=== PATIENT | female | born 1985 | race Caucasian/White ===

== ENCOUNTER 2020-03-10 17:27 | Emergency (ER) | payer OTHER, SELFPAY ==
--- NOTE | ~2020-03-10 | US_ITS ---
EXAMINATION: US OB <=14 wk fetus w TV EXAM DATE: 03/10/2020 18:24 INDICATION: Right pelvic pain, . Right lower quadrant pain. First trimester. TECHNIQUE: Pelvic obstetrical transabdominal and transvaginal sonogram was performed by a technologjorge hodges. There are multiple grayscale and Doppler images available for interpretation. There are no angelo ier studies of this gestation for comparison. FINDINGS: Uterus measures 8.6 x 4.9 x 7.2 cm. There is probable intrauterine gestation sac identified , mean sac diameter measuring 5 mm corresponding chest gestational age 5 weeks 0 days. No pole or yolk sac confirmed at this time. No subchorionic hemorrhage. Right ovary is unremarkable. There is hypoechoic lesion in the left ovary measuring up to 1.2 cm, smaller central hypoechoic region, proba filemon the corpus luteal cyst. Doppler flow was confirmed within both ovaries. Small free pelvic fluid. IMPRESSION: Early intrauterine gestation sac, age by ultrasound 5 weeks 0 days. Cannot identify pole at this time. Reviewed, dictated and finalized at location A.
[2020-03-10 17:30] VITALS: BP 141/92; PULSE 97; RESP 19; TEMP 37.7; O2SAT 100
--- NOTE | 2020-03-10 17:50 | ED.ABDPAIN ---
HPI - Abdominal Pain General Chief Complaint: Abdominal Pain <SHIRA Belcher Last Filed: 03/10/20 19:39> Stated Complaint: with RLQ pain <SHIRA Belcher Last Filed: 03/10/20 19:39> Time Seen by Provider: 03/10/20 17:41 <SHIRA Belcher Last Filed: 03/10/20 19:39> Source: patient <SHIRA Belcher Last Filed: 03/10/20 19:39> Mode of arrival: ambulatory <SHIRA Belcher Last Filed: 03/10/20 19:39> Limitations: no limitations <SHIRA Belcher Last Filed: 03/10/20 19:39> History of Present Illness HPI narrative: This is a 34 year old about 5 weeks by LMP that presents to the ER for right sided pelvic pain x 2 hours. Reports sudden onset sharp pain, which has improved since onset. Denies fever, vomiting, back pain, pelvic cramping, vaginal bleeding, or dysuria. <SHIRA Belcher Last Filed: 03/10/20 19:39> Related Data Home Medications: Home Medications Medication Instructions Recorded Confirmed Adderall 03/10/20 Lexapro 03/10/20 <Joann Mcnulty PA-C - Last Filed: 03/10/20 19:39> Allergies/Adverse Reactions: Allergies Allergy/AdvReac Type Severity Reaction Status Date / Time morphine Allergy Rash Verified 03/10/20 17:42 <SHIRA Belcher Last Filed: 03/10/20 19:39> Review of Systems Review of Systems: Narrative: CONSTITUTIONAL: Denies fever GASTROINTESTINAL: Reports abdominal pain. Denies nausea, vomiting GENITOURINARY: Denies dysuria or hematuria. MUSCULOSKELETAL: Denies back pain <SHIRA Belcher Last Filed: 03/10/20 19:39> All systems reviewed & are unremarkable except as noted in HPI and below <SHIRA Belcher Last Filed: 03/10/20 19:39> PMFSH Surgical History Surgical History: Surgical History (Updated 03/10/20 @ 18:10 by Joann Mcnulty PA-C) History of <Joann Mcnulty PA-C - Last Filed: 03/10/20 19:39> Social History Social History: Social History (Updated 03/10/20 @ 18:10 by Joann Mcnulty PA-C) Smoking status: Never smoker Gender identity (if verbalized by the patient): Female <Joann Mcnulty PA-C - Last Filed: 03/10/20 19:39> Exam Narrative: Exam Narrative: GENERAL: Well-appearing, well-nourished, and in no acute distress. HEAD: Normocephalic, atraumatic. EYES: EOMI. CHEST: Clear to auscultation. No respiratory distress. No wheezes rales or rhonchi HEART: Regular rate and rhythm. No murmur heard. Normal peripheral pulses. ABDOMEN: Soft, nontender, nondistended, normal active bowel sounds. EXTREMITIES: Normal range of motion. No edema. SKIN: Warm, dry, no rash. NEURO: No focal deficits. Alert and oriented x3. PSYCH: Normal mood and affect PELVIC: Normal external genitalia. Normal cervix, no blood noted in the vaginal vault. No CMT <Joann Mcnulty PA-C - Last Filed: 03/10/20 19:39> Course Consultations Consultation #1: Spoke with Dr. Palacio about patient and work-up will follow-up in clinic <Joann Mcnulty PA-C - Last Filed: 03/10/20 19:39> Date: 03/10/20 <Joann Mcnulty PA-C - Last Filed: 03/10/20 19:39> Time: 19:37 <Joann Mcnulty PA-C - Last Filed: 03/10/20 19:39> Vital Signs Vital signs: Vital Signs Temperature 99.8 F H 03/10/20 17:30 Pulse Rate 97 03/10/20 17:30 Respiratory Rate 19 03/10/20 17:30 Blood Pressure 141/92 H 03/10/20 17:30 Pulse Oximetry 100 03/10/20 17:30 Temperature 99.8 F H 03/10/20 17:30 Pulse Rate 88 03/10/20 19:49 Respiratory Rate 17 03/10/20 19:49 Blood Pressure 121/78 03/10/20 19:49 Pulse Oximetry 97 03/10/20 19:49 <Joann Mcnulty PA-C - Last Filed: 03/10/20 19:39> Vital Signs Temperature 99.8 F H 03/10/20 17:30 Pulse Rate 97 03/10/20 17:30 Respiratory Rate 03/10/20 17:30 Blood Pressure 141/92 H 03/10/20 17:30 Pulse Oximetry 100 03/10/20 17:30 Temperature 99.8 F H 0
[2020-03-10 18:01] LABS: Basophils Absolute Auto 0.1 K/mm3 (0.0-0.1); Basophils Percent Auto 0.7 % (0.2-1.2); Eosinophils Absolute Auto 0.3 K/mm3 (0-0.3); Eosinophils Percent Auto 4.8 % (0-4.4); Hematocrit 40.6 % (37.0-47.0); Hemoglobin 13.6 g/dL (12.0-15.0); Immature Granulocyte Absolute 0.01 K/mm3 (0.00-0.031); Immature Granulocyte Percent A 0.1 % (0-0.5); Lymphocytes Absolute Auto 1.97 K/mm3 (0.9-3.2); Lymphocytes Percent Auto 29.5 % (18.3-44.2); Mean Corpuscular HGB Conc 33.5 g/dl (32-36); Mean Corpuscular Hemoglobin 30.7 pg (26-34); Mean Corpuscular Volume 91.6 fl (80-100); Mean Platelet Volume 9.6 fl (7.4-10.4); Monocytes Absolute Auto 0.4 K/mm3 (0.1-0.6); Monocytes Percent Auto 5.5 % (2.6-8.5); Neutrophils Percent Auto 59.4 % (45.5-73.1); Platelet Count Result 278 k/mm3 (150-375); Red Blood Count 4.43 M/mm3 (4.2-5.4); Red Cell Distribution Width 12.4 % (11.5-14.5); White Blood Count 6.7 K/mm3 (4.5-10.0)
[2020-03-10 18:14] LABS: Alanine Aminotransferase 20 U/L (4-35); Albumin Level 4.4 g/dL (3.5-5.1); Alkaline Phosphatase 54 U/L (38-126); Aspartate Amino Transferase 24 U/L (14-36); Bilirubin,Total 0.3 mg/dL (0.2-1.3); Blood Urea Nitrogen 13 mg/dL (7-17); Carbon Dioxide 21 mmol/L (22-30); Chloride 106 mmol/L (98-107); Estimated CRCL calculation 87 ml/min; Estimated Glomerular Filt Rate > 60; Glucose 99 mg/dL (65-105); Lipase 84 U/L (23-300); Potassium 3.6 mmol/L (3.4-5.0); Sodium 137 mmol/L (137-145)
[2020-03-10 19:14] VITALS: BP 127/94; PULSE 59; RESP 12; O2SAT 100
[2020-03-10 19:21] LABS: Add Urine Microscopic? YES; Appearance Urine Clear (Clear); Bacteria Urine Trace /hpf; Bilirubin Urine Negative (Negative); Blood Urine Negative (Negative); Calcium Oxalate Crystals Urine Present /hpf; Color Urine Yellow (Yellow); Glucose Urine UA Negative (Negative); Ketones Urine Negative (Negative); Leukocyte Esterase Ur Negative LEU/UL (Negative); Mucus Urine Few /lpf; Nitrate Urine Negative (Negative); Protein Urine 1+ mg/dL (Negative); Specific Grav Ur 1.029 (1.001-1.035); Squamous Epithelial Cell Urine Few /hpf (Few); Urobilinogen Urine Negative mg/dL (<2.0)
[2020-03-10 19:49] VITALS: BP 121/78; PULSE 88; RESP 17; O2SAT 97
== END 2020-03-10 19:45 | disposition home or self-care (01) ==
PROVIDERS: Physician Assistant; Emergency Provider Emergency Medicine
DX: O26.891 Other specified pregnancy related conditions, first trimester (principal); R10.2 Pelvic and perineal pain; Z3A.01 Less than 8 weeks gestation of pregnancy
CPT/HCPCS: 36415; 76801; 76817; 80053; 81001; 81025; 83690; 84702; 85025; 85461; 96365; 99284; J0131

== ENCOUNTER 2020-03-28 13:17 | Emergency (ER) | payer OTHER, SELFPAY ==
--- NOTE | ~2020-03-28 | US_ITS ---
EXAMINATION: US OB <= 14 weeks fetus EXAM DATE: 03/28/2020 17:23 INDICATION: Nausea and vomiting. First trimester. TECHNIQUE: Pelvic obstetrical transabdominal sonogram was performed by a technologist. There are mu ltiple grayscale and Doppler images available for interpretation. Comparison is made to prior examina tion from 03/10/2020. FINDINGS: Uterus measures 11.2 x 6.7 x 7.8 cm. There is intrauterine gestation sac. pole with heart rate confirmed at 149 beats per minute. The 1.1 cm crown-rump length corresponds to estimated gestational age by ultrasound of 7 weeks 1 day. Yolk sac is identified, measuring 2 mm in size. T here is no sonographic evidence of subchorionic hemorrhage. Right ovary is morphologically normal w ith color flow confirmed. No subchorionic hemorrhage IMPRESSION: 1. Live intrauterine gestation, age by ultrasound 7 weeks 3 days. Reviewed, dictated and finalized at location A.
[2020-03-28 13:19] VITALS: BP 146/92; PULSE 78; RESP 16; TEMP 36.4; O2SAT 100
[2020-03-28 13:32] LABS: Basophils Percent Auto 0.4 % (0.2-1.2); Eosinophils Absolute Auto 0.2 K/mm3 (0-0.3); Eosinophils Percent Auto 2.1 % (0-4.4); Immature Granulocyte Absolute 0.02 K/mm3 (0.00-0.031); Immature Granulocyte Percent A 0.2 % (0-0.5); Lymphocytes Absolute Auto 2.28 K/mm3 (0.9-3.2); Lymphocytes Percent Auto 22.4 % (18.3-44.2); Mean Corpuscular HGB Conc 34.1 g/dl (32-36); Mean Corpuscular Hemoglobin 30.6 pg (26-34); Mean Corpuscular Volume 89.8 fl (80-100); Mean Platelet Volume 8.9 fl (7.4-10.4); Monocytes Absolute Auto 0.6 K/mm3 (0.1-0.6); Monocytes Percent Auto 5.6 % (2.6-8.5); Neutrophils Absolute Auto 7.1 K/mm3 (1.3-6.7); Neutrophils Percent Auto 69.3 % (45.5-73.1); Platelet Count Result 307 k/mm3 (150-375); Red Cell Distribution Width 12.4 % (11.5-14.5); White Blood Count 10.2 K/mm3 (4.5-10.0)
[2020-03-28 13:46] LABS: Alanine Aminotransferase 14 U/L (4-35); Albumin Level 4.6 g/dL (3.5-5.1); Alkaline Phosphatase 54 U/L (38-126); Aspartate Amino Transferase 20 U/L (14-36); Bilirubin,Total 0.5 mg/dL (0.2-1.3); Blood Urea Nitrogen 10 mg/dL (7-17); Calcium 9.4 mg/dL (8.4-10.2); Carbon Dioxide 27 mmol/L (22-30); Chloride 99 mmol/L (98-107); Estimated CRCL calculation 87 ml/min; Estimated Glomerular Filt Rate > 60; Glucose 98 mg/dL (65-105); Lipase 32 U/L (23-300); Potassium 4.1 mmol/L (3.4-5.0); Sodium 135 mmol/L (137-145)
[2020-03-28 13:47] VITALS: BP 120/84; PULSE 56
[2020-03-28 13:48] VITALS: BP 124/107; PULSE 70
[2020-03-28 13:50] VITALS: BP 135/105; PULSE 80
--- NOTE | 2020-03-28 13:53 | PC.NURSE ---
urine to sent Lab per Lubna Shin, Tech
[2020-03-28 14:03] LABS: Add Urine Microscopic? YES; Appearance Urine Clear (Clear); Bacteria Urine Trace /hpf; Bilirubin Urine Negative (Negative); Blood Urine Negative (Negative); Calcium Oxalate Crystals Urine Present /hpf; Color Urine Yellow (Yellow); Glucose Urine UA Negative (Negative); Ketones Urine 1+ mg/dL (Negative); Leukocyte Esterase Ur Trace LEU/UL (Negative); Mucus Urine Heavy /lpf; Nitrate Urine Negative (Negative); Protein Urine 1+ mg/dL (Negative); Specific Grav Ur 1.027 (1.001-1.035); Squamous Epithelial Cell Urine Few /hpf (Few); WBC Urine 21-30 /hpf
[2020-03-28] MEDS: DEXTROSE 5%/0.9% SOD CHL 1,000 ML 999 ML IV CONT (15:32)
[2020-03-28] MEDS: METOCLOPRAMIDE HCL INJ 10 MG/2 ML VIAL IV PUSH (16:14)
--- NOTE | 2020-03-28 18:38 | ED.NAVMDI ---
HPI - Nausea/Vomiting/Diarrhea General Chief complaint: Nausea/Vomiting/Diarrhea <Joann Mcnulty PA-C - Last Filed: 03/28/20 23:29> Stated complaint: 8 weeks /dehydration <SHIRA Belcher Last Filed: 03/28/20 23:29> Time Seen by Provider: 03/28/20 15:39 <SHIRA Belcher Last Filed: 03/28/20 23:29> Source: patient <SHIRA Belcher Last Filed: 03/28/20 23:29> Mode of arrival: ambulatory <SHIRA Belcher Last Filed: 03/28/20 23:29> Limitations: no limitations <SHIRA Belcher Last Filed: 03/28/20 23:29> History of Present Illness HPI Narrative: This is a 34 year old female, about 8 weeks by LMP that presents to the ER for nausea and vomiting x 3 days. Reports nausea over the last 10 days. Reports she has been unable to keep down anything over the last couple days. Does also report some dysuria. Denies fever, abdominal pain, pelvic cramping or vaginal bleeding. <SHIRA Belcher Last Filed: 03/28/20 23:29> Related Data Home medications: Home Medications Medication Instructions Recorded Confirmed Adderall 03/10/20 Lexapro 03/10/20 <SHIRA Belcher Last Filed: 03/28/20 23:29> Allergies/Adverse reactions: Allergies Allergy/AdvReac Type Severity Reaction Status Date / Time morphine Allergy Rash Verified 03/10/20 17:42 <SHIRA Belcher Last Filed: 03/28/20 23:29> Review of Systems Review of Systems: Narrative: CONSTITUTIONAL: Denies fever GASTROINTESTINAL: Reports nausea and vomiting. Denies abdominal pain, diarrhea. GENITOURINARY: Reports dysuria. Denies hematuria. <SHIRA Belcher Last Filed: 03/28/20 23:29> All systems reviewed & are unremarkable except as noted in HPI and below <SHIRA Belcher Last Filed: 03/28/20 23:29> PMFSH Surgical History Surgical History: Surgical History (Updated 03/10/20 @ 18:10 by Joann Mcnulty PA-C) History of <Joann Mcnulty PA-C - Last Filed: 03/28/20 23:29> Social History Social History: Social History (Updated 03/10/20 @ 18:10 by Joann Mcnulty PA-C) Smoking status: Never smoker Gender identity (if verbalized by the patient): Female <Joann Mcnulty PA-C - Last Filed: 03/28/20 23:29> Exam Narrative: Exam Narrative: GENERAL: Well-appearing, well-nourished, and in no acute distress. HEAD: Normocephalic, atraumatic. EYES: EOMI. CHEST: Clear to auscultation. No respiratory distress. No wheezes rales or rhonchi HEART: Regular rate and rhythm. No murmur heard. Normal peripheral pulses. ABDOMEN: Soft, nontender, nondistended, normal active bowel sounds. EXTREMITIES: Normal range of motion. No edema. SKIN: Warm, dry, no rash. NEURO: No focal deficits. Alert and oriented x3. PSYCH: Normal mood and affect <Joann Mcnulty PA-C - Last Filed: 03/28/20 23:29> Course Consultations Consultation #1: Spoke with Dr. Palacio about patient and workup who will follow up in clinic <Joann Mcnulty PA-C - Last Filed: 03/28/20 23:29> Date: 03/28/20 <Joann Mcnulty PA-C - Last Filed: 03/28/20 23:29> Vital Signs Vital signs: Vital Signs Temperature 97.5 F L 03/28/20 13:19 Pulse Rate 78 03/28/20 13:19 Respiratory Rate 16 03/28/20 13:19 Blood Pressure 146/92 H 03/28/20 13:19 Pulse Oximetry 100 03/28/20 13:19 Temperature 98.7 F 03/28/20 18:58 Pulse Rate 57 L 03/28/20 18:58 Respiratory Rate 16 03/28/20 18:58 Blood Pressure 115/83 03/28/20 18:58 Pulse Oximetry 100 03/28/20 18:58 <Joann Mcnulty PA-C - Last Filed: 03/28/20 23:29> Vital Signs Temperature 97.5 F L 03/28/20 13:19 Pulse Rate 78 03/28/20 13:19 Respiratory Rate 16 03/28/20 13:19 Blood Pressure 146/92 H 03/28/20 13:19 Pulse Oximetry 100 03/28/20 13:19 Temperature 98.7 F 03/28/20 18:58 Pulse Rate 57 L 03/28/20 18:58 Respiratory Rate 16 03/28/20 18:58 Blo
[2020-03-28 18:58] VITALS: BP 115/83; PULSE 57; RESP 16; TEMP 37.1; O2SAT 100
== END 2020-03-28 19:00 | disposition home or self-care (01) ==
PROVIDERS: Emergency Provider Emergency Medicine
DX: O23.41 Unspecified infection of urinary tract in pregnancy, first trimester (principal); O21.9 Vomiting of pregnancy, unspecified; Z3A.01 Less than 8 weeks gestation of pregnancy
CPT/HCPCS: 36415; 76801; 80053; 81001; 81025; 83690; 85025; 87086; 96361; 96374; 96375; 99284; J1200; J2765; J7042

== ENCOUNTER 2020-10-12 13:31 | Outpatient (RCR) | payer OTHER, SELFPAY ==
--- NOTE | ~2020-10-12 | US_ITS ---
EXAMINATION: US OB BPP wo non-stress DATE: 10/12/2020 14:44 INDICATION: Gestational diabetes. Third trimester. TECHNIQUE: Real-time pelvic ultrasound was performed. COMPARISON: Ultrasound 03/28/2020, 03/10/2020 FINDINGS: There is a single living fetus in vertex presentation. The placenta is anterior. heart rate is 149 beats per minute (bpm). Biophysical profile performed by the technologist: breathing (30 sec sustained breathing in 30 minutes): 2 out of 2 movement (3 gross body movements in 30 minutes): 2 out of 2 tone (one episode of yjgqfrv-hunechgkz-juiizbw limb movement): 2 out of 2 Amniotic fluid pocket (2 cm): 2 out of 2 Total score: 8 out of 8 IMPRESSION: 1. Single living fetus in vertex presentation. 2. Biophysical profile 8 out of 8. Reviewed, dictated and finalized at location A. [employer]
[2020-10-12 14:52] VITALS: BP 115/70; PULSE 74
== END 2020-11-07 07:44 | disposition home or self-care (01) ==
LOC: ANHOBOP 13:31
PROVIDERS: PCP Family Medicine; Visit Provider Obstetrics & Gynecology
DX: O24.419 Gestational diabetes mellitus in pregnancy, unspecified control (principal); Z3A.35 35 weeks gestation of pregnancy
CPT/HCPCS: 59025; 76819

== ENCOUNTER 2020-11-06 07:52 | Inpatient (IN) | payer OTHER, SELFPAY ==
[2020-11-06] VITALS (61 sets, daily range): BP systolic 83–157; BP diastolic 44–113; PULSE 51–133; RESP 16–21; TEMP 36.1–37.1; O2SAT 97–100; BMI 26.9
[2020-11-06] MEDS: LACTATED RINGERS 1,000 ML 999 ML IV CONT (08:22)
--- NOTE | 2020-11-06 08:25 | WPDANESEPPF ---
Anes - Initial Pre Proc Eval Procedure: Operation Date: 11/07/20 09:00 Proposed Procedures p Repeat Section - Esha Palacio MD Date/Time: 11/06/20 08:25 Surgeon: Esha Palacio MD Pre Op Diagnosis: contractions Patient Data Age: 35 Gender: F Height: Weight: Allergies Allergy/AdvReac Type Severity Reaction Status Date / Time morphine Allergy Rash Verified 03/10/20 17:42 Home Medications Medication Instructions Recorded Confirmed Type PNV cmb#95-ferrous fumarate-FA 1 tablet PO DAILY 10/15/20 10/15/20 History [] dextroamphetamine-amphetamine 5 mg PO BID 10/15/20 10/15/20 History [Adderall] escitalopram oxalate [Lexapro] 20 mg PO DAILY 10/15/20 10/15/20 History Patient hx anesthesia problems: none Family hx anesthesia problems: none [facility] Past Medical History Medical History (Updated 11/06/20 @ 08:26 by Vick Wong MD) Gestational diabetes Surgical History Surgical History (Updated 11/06/20 @ 08:26 by Vick Wong MD) History of Family History Family History (Updated 10/15/20 @ 13:59 by Germaine Monsalve RN) Father Hypertension Son Septo-optic dysplasia Social History Social History (Updated 11/06/20 @ 08:27 by Vick Wong MD) Smoking status: Former smoker Substance use: never Gender identity (if verbalized by the patient): Female Spiritual care concerns: No Anes - Eval Final PreProcedure Day of Procedure 11/06/20 08:25 Patient weight: overweight Heart: regular rate and rhythm Lungs: clear to auscultation Airway: Mallampati scale class II Neurological: alert and oriented Last oral intake: >/= 8 hours ASA classification: II Emergent: no Anesthetic plan: proceed Anesthesia type and monitoring: regional spinal and standard monitoring Informed Consent: The patient's anesthetic plan and its attendant risks and benefits were discussed with the patient/family/POA. Questions were solicited and answers provided to the satisfaction of the patient/family/POA.
--- NOTE | 2020-11-06 08:32 | PM.IMHP ---
H&P: HPI History of Present Illness Date/Time: 11/06/20 08:32 Chief Complaint: Painful contractions Narrative: Raine Hester is a 35 year old female 3 para 2001 at 38 weeks gestation with 2 previous deliveries. We will proceed with repeat delivery today. She is in labor. She presents with contractions and cervical dilation. She denies any nausea, vomiting, fever, chills. She denies any chest pain or shortness of breath. She reports good movement. She denies any loss of fluid or vaginal bleeding. Review of Systems Constitutional: Constitutional: Reports no additional constitutional complaints, Denies fatigue, Denies headache(s), Denies lethargy and Denies weakness Eyes: Eyes: Reports no additional eye complaints, Denies blurry vision and Denies photophobia ENT: Reports as per HPI, Denies headache(s) and Denies neck pain Cardiovascular: Cardiovascular: Denies chest pain, Denies diaphoresis, Denies leg edema, Denies palpitations and Denies dyspnea Respiratory: Respiratory: Denies hemoptysis, Denies dyspnea and Denies wheezing Gastrointestinal: Gastrointestinal: Denies abdominal pain, Denies melena, Denies bloating, Denies hematochezia, Denies nausea and Denies vomiting Genitourinary: Genitourinary: Reports no additional female genitourinary complaints Musculoskeletal: Musculoskeletal: Denies joint swelling, Denies neck pain, Denies numbness and Denies stiffness Neurologic: Denies Abnormal speech present, Denies confusion, Denies headache(s), Denies numbness and Denies weakness Psychiatric: Psychiatric: Denies anxiety, Denies confusion, Denies depression, Denies homicidal ideation and Denies suicidal ideation Endocrine: Endocrine: Denies fatigue and Denies palpitations Allergic/Immunologic: Allergic/Immunologic: Denies wheezing PMF Past Medical History Medical History (Updated 11/06/20 @ 08:33 by Esha Palacio MD) Gestational diabetes Surgical History Surgical History (Updated 11/06/20 @ 08:33 by Esha Palacio MD) History of Family History Family History (Updated 10/15/20 @ 13:59 by Germaine Monsalve RN) Father Hypertension Son Septo-optic dysplasia Social History Social History (Updated 11/06/20 @ 08:27 by Vick Wong MD) Smoking status: Former smoker Substance use: never Gender identity (if verbalized by the patient): Female Spiritual care concerns: No Meds Home Medications and Allergies Home Medications Medication Instructions Recorded Confirmed Type PNV cmb#95-ferrous fumarate-FA 1 tablet PO DAILY 10/15/20 10/15/20 History [] dextroamphetamine-amphetamine 5 mg PO BID 10/15/20 10/15/20 History [Adderall] escitalopram oxalate [Lexapro] 20 mg PO DAILY 10/15/20 10/15/20 History Allergies Allergy/AdvReac Type Severity Reaction Status Date / Time morphine Allergy Rash Verified 03/10/20 17:42 Exam Const: General: healthy appearing, comfortable and no acute distress; No confusion Orientation/consciousness: No confusion Eyes: Direct Ophthalmoscopy: No photophobia Resp: Auscultation: clear to auscultation bilaterally, no rales, no rhonchi and no wheezes Cardio: Rate: regular rate Heart sounds: no click, no murmurs and no rubs GI: Inspection: non-distended GI Palp: No abdominal tenderness Auscultation: normal bowel sounds Neuro: General: No confusion Speech: No Abnormal speech present Extrem: General: normal to inspection, no pedal edema and no calf tenderness Assessment and Plan Assessment and plan (1) Term : Code(s): Z34.90 - Encounter for supervision of normal , unspecified, unspecified trimester Status: Acute (2) Previous section: Code(s): Z98.891 - History of uterine scar from previous surgery Status: Acute (3) Active labor: Status: Acute Assessment and Plan: This patient is a 35-year-old multiparous female at 38
[2020-11-06 08:36] LABS: Glucose Point of Care 80 (65-105)
[2020-11-06 08:39] LABS: Basophils Absolute Auto 0.1 K/mm3 (0.0-0.1); Basophils Percent Auto 0.5 % (0.2-1.2); Eosinophils Absolute Auto 0.2 K/mm3 (0-0.3); Eosinophils Percent Auto 2.2 % (0-4.4); Hematocrit 39.9 % (37.0-47.0); Hemoglobin 13.8 g/dL (12.0-15.0); Immature Granulocyte Absolute 0.05 K/mm3 (0.00-0.031); Immature Granulocyte Percent A 0.5 % (0-0.5); Lymphocytes Absolute Auto 2.06 K/mm3 (0.9-3.2); Lymphocytes Percent Auto 21.2 % (18.3-44.2); Mean Corpuscular HGB Conc 34.6 g/dl (32-36); Mean Corpuscular Hemoglobin 30.2 pg (26-34); Mean Corpuscular Volume 87.3 fl (80-100); Mean Platelet Volume 9.7 fl (7.4-10.4); Monocytes Absolute Auto 0.6 K/mm3 (0.1-0.6); Monocytes Percent Auto 6.6 % (2.6-8.5); Neutrophils Absolute Auto 6.7 K/mm3 (1.3-6.7); Platelet Count Result 185 k/mm3 (150-375); Red Blood Count 4.57 M/mm3 (4.2-5.4); Red Cell Distribution Width 13.4 % (11.5-14.5); White Blood Count 9.7 K/mm3 (4.5-10.0)
--- NOTE | 2020-11-06 08:53 | LDADM ---
This patient, Raine Hester, was admitted to Labor/Delivery/Recovery 120 on 11/06/20 at 07:52. Plans for surgery / and pain management were discussed with patient. Patient/family oriented to hospital policies and general routines including ID bracelet, bed and alarms, visiting hours, pain management, procedures, bathroom and other care routines, personal items, smoking policy, room service/diet and guest tray routines, security routines, and visiting hours. Patient/Family are encouraged to report perceived risks to care and to ask questions if they do not understand what they are told or what they should do. See OBIX for further documentation.
[2020-11-06] MEDS: LACTATED RINGERS 1,000 ML 125 ML IV CONT (08:57)
[2020-11-06] MEDS: ceFAZolin 2 GM/D5W 50 ML 2 GM/50 ML BAG IVPB (09:00)
--- NOTE | 2020-11-06 09:46 | PM.PROC ---
Procedure Note - Detailed Date of procedure: 11/06/20 Pre-op diagnosis: contractions, labor, previous LTCS Post-op diagnosis: same Procedure performed: low-transverse delivery Description of procedure: The patient was taken the operating room. She was prepped and draped in the dorsal supine position with leftward tilt after induction of spinal anesthetic. When anesthesia was found to be adequate a low-transverse skin incision was made and carried down to the level the fascia with the knife. The fascial incision was made at the midline with a scalpel. The fascial incision was extended laterally with Drummond scissors. The fascia was tented upward superior and inferior with Edelmira clamps. The rectus muscles were dissected off bluntly. The rectus muscles at the midline. The preperitoneal fat was dissected bluntly at the superior aspect of the separate the rectus muscles. The peritoneal cavity was entered bluntly in the same area. The peritoneal incision was extended superior and inferior with good visualization of bladder. Bladder blade was inserted. A low-transverse incision was made on the uterus with the scalpel. It was carried down the level of the amniotic cavity with a knife. The amniotic cavity bluntly. The uterine incision was made laterally with blunt traction. The infant was delivered. The cord was clamped and cut. The was handed off to waiting pediatric staff. Cord bloods were obtained. The placenta was removed manually. The uterus was exteriorized. Uterus cleared of all clots and debris. Uterus closed in 0 Vicryl in a running locked fashion. An imbricating layer of 0 Vicryl was also placed on the to bolster the closure. The uterus was returned to the abdomen. The gutters were cleared of all clots and debris. The fascia was closed 0 Vicryl in a running fashion. Subcutaneous tissue was irrigated and bleeding areas were cauterized. The skin was closed with 4O monocryl. The incision was covered with derma austin. The patient tolerated the procedure well. She was taken recovery room stable condition. Sponge, lap, needle counts were correct x2. Anesthesia: spinal Surgeon: Esha Palacio MD Estimated blood loss (mL): 340 Drains: No Packing: No Pathology: none sent Complications: No immediate complications Condition: stable Disposition: floor Findings: Normal maternal anatomy. Average size infant with normal Apgars.
[2020-11-06] MEDS: OXYTOCIN 30 UNITS/NS 500 ML 30 UNITS/500 ML BAG 125 UNITS IV CONT (10:53)
[2020-11-06] MEDS: fentaNYL CITRATE INJ (*CRX) 100 MCG/2 ML VIAL 25 MCG IV PUSH (12:05)
--- NOTE | 2020-11-06 12:15 | PC.NURSE ---
Dr. Palacio updated on increasing BP's at end of recovery, urine output at beginning of recovery is 50ml and 2 hrs later 75 ml, QBL in recovery was 250 ml. No additional orders at this time.
[2020-11-06] MEDS: KETOROLAC 30 MG/ML VIAL (*BKC) IV PUSH (14:55)
[2020-11-06] MEDS: DEXTROSE 5%/0.45% SOD CHL 1,000 ML 125 ML IV CONT (14:55)
[2020-11-06] MEDS: HYDROcodone/acetaminophen (*CRX) 10-325 MG TABLET 1 TAB PO (19:24)
[2020-11-06] MEDS: LORATADINE 10 MG TABLET PO (19:24)
[2020-11-06] MEDS: IBUPROFEN 600 MG TABLET PO (19:24)
[2020-11-07 00:53] VITALS: BP 121/74; PULSE 73; RESP 16; TEMP 36.7; O2SAT 98
[2020-11-07] MEDS: HYDROcodone/acetaminophen (*CRX) 5-325 MG TABLET 1 TAB PO ×4 (04:39→22:44)
[2020-11-07 05:26] LABS: Basophils Percent Auto 0.3 % (0.2-1.2); Eosinophils Absolute Auto 0.2 K/mm3 (0-0.3); Eosinophils Percent Auto 1.9 % (0-4.4); Hematocrit 31.9 % (37.0-47.0); Hemoglobin 10.7 g/dL (12.0-15.0); Immature Granulocyte Absolute 0.03 K/mm3 (0.00-0.031); Immature Granulocyte Percent A 0.3 % (0-0.5); Lymphocytes Absolute Auto 1.59 K/mm3 (0.9-3.2); Lymphocytes Percent Auto 17.6 % (18.3-44.2); Mean Corpuscular HGB Conc 33.5 g/dl (32-36); Mean Corpuscular Hemoglobin 30.5 pg (26-34); Mean Corpuscular Volume 90.9 fl (80-100); Mean Platelet Volume 10.3 fl (7.4-10.4); Monocytes Absolute Auto 0.6 K/mm3 (0.1-0.6); Monocytes Percent Auto 6.5 % (2.6-8.5); Neutrophils Absolute Auto 6.6 K/mm3 (1.3-6.7); Neutrophils Percent Auto 73.4 % (45.5-73.1); Platelet Count Result 155 k/mm3 (150-375); Red Blood Count 3.51 M/mm3 (4.2-5.4); Red Cell Distribution Width 13.3 % (11.5-14.5); White Blood Count 9.1 K/mm3 (4.5-10.0)
--- NOTE | 2020-11-07 07:50 | PM.OBPNVD ---
OB - PN: Subj Subjective Date/time seen: 11/07/20 07:50 Patient comments: no complaints baby status: doing well Narrative: POD 1 from repeat CS. Doing well. Normal lochia. Eating, ambulating, dillard out. OB - PN: Obj Data Labs CBC & Chem 7: 11/07/20 04:42 Labs: Laboratory Results - last 24 hr 11/06/20 11/06/20 11/06/20 08:22 08:30 08:30 WBC 9.7 RBC 4.57 Hgb 13.8 Hct 39.9 MCV 87.3 MCH 30.2 MCHC 34.6 RDW 13.4 Plt Count 185 MPV 9.7 Immature Gran % (Auto) 0.5 Neut % (Auto) 69.0 Lymph % (Auto) 21.2 Isabela % (Auto) 6.6 Eos % (Auto) 2.2 Baso % (Auto) 0.5 Lymph # (Auto) 2.06 Isabela # (Auto) 0.6 Eos # (Auto) 0.2 Baso # (Auto) 0.1 Abs Immat Gran (auto) 0.05 H Absolute Neuts (auto) 6.7 Absolute Nucleated RBC 0.0 Nucleated RBC % 0.0 POC Capillary Glucose 80 Blood Type A Positive Antibody Screen Negative 11/07/20 04:42 WBC 9.1 RBC 3.51 L Hgb 10.7 L D Hct 31.9 L MCV 90.9 MCH 30.5 MCHC 33.5 RDW 13.3 Plt Count 155 MPV 10.3 Immature Gran % (Auto) 0.3 Neut % (Auto) 73.4 H Lymph % (Auto) 17.6 L Isabela % (Auto) 6.5 Eos % (Auto) 1.9 Baso % (Auto) 0.3 Lymph # (Auto) 1.59 Isabela # (Auto) 0.6 Eos # (Auto) 0.2 Baso # (Auto) 0.0 Abs Immat Gran (auto) 0.03 Absolute Neuts (auto) 6.6 Absolute Nucleated RBC 0.0 Nucleated RBC % 0.0 POC Capillary Glucose Blood Type Antibody Screen OB - PN A/P Plan day: 1 Plan: routine care Time Spent With Patient Time: Total time spent is greater than 50% in coordination of care (as documented) at patient's floor/unit and/or counseling patient: Exam Narrative: Exam Narrative: NAD abdomen soft, appropriately tender, incision CDI Extremities nontender with 1+ edema
[2020-11-07 08:00] VITALS: BP 113/76; PULSE 65; RESP 16; TEMP 36.7; O2SAT 97
[2020-11-07] MEDS: DOCUSATE SODIUM 100 MG CAPSULE PO (08:36)
[2020-11-07] MEDS: MULTIVIT/MIN/PREN/FOL AC/IRON TABLET 1 TAB PO (08:36)
[2020-11-07] MEDS: IBUPROFEN 600 MG TABLET PO ×3 (08:36→22:44)
--- NOTE | 2020-11-07 10:46 | PC.NURSE ---
Consulted with patient, reviewed feeding cues, frequencies, duration of feedings, feeding elimination flow sheet, and signs of adequate intake. Demonstrated stimulation techniques to wake for feeding. Assisted with to breast. Reviewed positioning/alignment, holding breast and asymmetrical latch on. was able to latch correctly. Infant nursed eagerly, with steady draws and frequent swallowing noted. Reviewed signs of a correct latch, effective nursing and suck swallow ratio. was able to maintain latch without discomfort to mother. Nipple care reviewed. Instructed mother to call out for RN assistance if she is unable to latch for feeding or she has discomfort with nursing. Instructed feeding should be initiated three hours from start of last feeding or if feeding cues are noted before. Mother voiced understanding of information shared.
[2020-11-07 11:04] LABS: Rapid Plasma Reagin Non-Reactive (NonReactive)
--- NOTE | 2020-11-07 13:11 | WPDANLDPN2 ---
Anes-Prog Note L&D Date/Time: 11/07/20 13:11 Comfortable throughout: section Neuraxial method: spinal Epidural/Spinal procedure site: clean & non-tender Neuro status: Neuro function grossly intact. Cardiovascular status: normal Respiratory status: normal Airway patency: baseline Mental status: baseline Post-Op hydration status: normal Vital Signs: Last Vital Signs Temp 36.7 C 11/07/20 08:00 Pulse 65 11/07/20 08:00 Resp 16 11/07/20 08:00 BP 113/76 11/07/20 08:00 Pulse Ox 97 11/07/20 08:00 Pain score (VAS): 0/10. Patient resting in bed at time of assessment, appears comfortable. I/O: Intake & Output 11/06/20 11/07/20 11/07/20 23:59 07:59 15:59 Intake Total 500 Output Total 200 Balance -200 500 Post-procedural complaints: none Patient feedback: Patient satisfied with anesthetic care.
--- NOTE | 2020-11-07 13:12 | WPDANLDNPN2 ---
Anes-Prog Note L&D-Neuraxial Date/Time: 11/07/20 13:12 Neuraxial medications: intrathecal PF morphine Opiod-related complaints: none Patient feedback: Patient satisfied with post-operative pain management.
[2020-11-07] MEDS: SIMETHICONE 80 MG TAB.CHEW PO (14:14)
[2020-11-07 19:12] VITALS: BP 123/82; PULSE 90; RESP 16; TEMP 36.9; O2SAT 98
--- NOTE | 2020-11-08 07:52 | P.PNOB_ITS ---
OB - PN: Subj Subjective Date/time seen: 11/08/20 07:52 Patient comments: no complaints baby status: doing well [place] feeding status: exclusively breast feeding Narrative: Wants DC today. OB - PN: Obj Data Labs CBC & Chem 7: 11/07/20 04:42 Labs: Laboratory Results - last 24 hr 11/06/20 08:30 RPR Non-reactive OB - PN A/P Plan day: 2 Plan: routine care and discharge home Comments: Home today. DC instructions given. FU 1 week in office. Time Spent With Patient Time: Total time spent is greater than 50% in coordination of care (as documented) at patient's floor/unit and/or counseling patient: Exam Narrative: Exam Narrative: NAD abdomen soft, appropriately tender, incision CDI Extremities nontender with 1+ edema
--- NOTE | 2020-11-08 08:03 | PM.OBDSVD ---
DS: Admitting Diagnosis Admitting Diagnosis Admitting Diagnosis: term DS: Discharge Diagnosis Discharge Diagnosis (1) delivery delivered: Code(s): O82 - Encounter for delivery without indication Status: Acute OB - DS: Summary OB Procedures : None OB Procedures Intrapartum: OB Procedures: : None Peripartum Data Procedures: Procedures Operation Date: 11/06/20 09:00 Actual Procedures Side Surgeon p Repeat Section Not Applicable Esha Palacio MD Time Spent with Patient Time attestation: Total time spent providing and/or coordinating discharge services: DS: Data Data Completed and Pending Labs on day of discharge: Labs from last 24 hours 11/06/20 08:30 RPR Non-reactive Discharge Plan Discharge Attending physician on discharge: Dominique Hedrick Discharging Clinician: Dominique Hedrick Anticipated Discharge Date/Time: 11/08/20 16:00 Patient Disposition: Home, Self-Care Activity: may shower and may drive after 2 weeks Diet: as tolerated Patient Instructions: Antibiotic Form Stand Alone Forms: General Discharge Information Follow-up/Referrals: Esha Palacio MD [Physician] - (1 week) Discharge Medications: Continued escitalopram oxalate [Lexapro] 20 mg Tablet 20 mg PO DAILY RF: 0 PNV cmb#95-ferrous fumarate-FA [] 28 mg iron- 800 mcg Tablet 1 tablet PO DAILY RF: 0 Discontinued dextroamphetamine-amphetamine [Adderall] 5 mg Tablet 5 mg PO BID RF: 0 Date of admission: 11/06/20 07:52 Primary Care Provider: SallyEleni Admitting Provider: Esha Palacio Attending physician on admission: Esha Palacio Condition: Stable
[2020-11-08 08:35] VITALS: BP 118/75; PULSE 62; RESP 16; TEMP 36.9; O2SAT 100
[2020-11-08] MEDS: HYDROcodone/acetaminophen (*CRX) 5-325 MG TABLET 1 TAB PO (08:43)
[2020-11-08] MEDS: IBUPROFEN 600 MG TABLET PO (08:44)
[2020-11-08] MEDS: DOCUSATE SODIUM 100 MG CAPSULE PO (08:45)
[2020-11-08] MEDS: MULTIVIT/MIN/PREN/FOL AC/IRON TABLET 1 TAB PO (08:45)
--- NOTE | 2020-11-08 09:53 | PC.NURSE ---
Mother verbalizes she is able to independently latch with appropriate positioning/alignment. She states she had minimal nipple discomfort, is feeding as required and waking to feed if needed. Infant has had 8 effective feedings in the past 24 hours, and is currently meeting outcomes for weight, output, jaundice and feeding frequencies. Mother states she feels confident to continue effective at home. Reviewed transition to breast milk, signs of adequate intake, and engorgement/relief. Instructed to call ICP if intake/output less than required. Reviewed community resources on the [facility] website and in the Mom/Baby guide. Information on outpatient services provided. Mother has no further questions at this time. Encouraged mom to call out for next feeding to have latch assessed.
--- NOTE | 2020-11-08 14:15 | PC.NURSE ---
Patient discharged home with significant other with in car seat.
== END 2020-11-08 14:15 | disposition home or self-care (01) | DRG 540 ==
LOC: ANHLDR 09:50 → ANHOB2 11-07 03:03 → ANHLDR 11-10 12:42 → ANHOB2 11-10 12:42
PROVIDERS: Admitting Provider Obstetrics & Gynecology; PCP Family Medicine; Visit Provider Obstetrics & Gynecology
PROC: (CPT 59514; principal; 2020-11-07 09:00)
DX: O34.211 Maternal care for low transverse scar from previous cesarean delivery (principal); Z37.0 Single live birth; Z3A.39 39 weeks gestation of pregnancy; O99.344 Other mental disorders complicating childbirth; F90.9 Attention-deficit hyperactivity disorder, unspecified type; F41.9 Anxiety disorder, unspecified; O24.419 Gestational diabetes mellitus in pregnancy, unspecified control
CPT/HCPCS: 36415; 85025; 86592; 86850; 86900; 86901; A9270; J0131; J0690; J1885; J2274; J2370; J2590; J3010; J7120

== ENCOUNTER 2024-11-28 14:12 | Emergency (ER) | payer OTHER, SELFPAY ==
--- NOTE | ~2024-11-28 | XR_ITS ---
XR chest 2V Ordering provider: Joann Mcnulty PA-C History: 39 years Female with . syncope . Comparison: None. FINDINGS: MEDIASTINUM: The cardiac silhouette is not enlarged. LUNGS: No infiltrates, effusions or pneumothorax. OTHER: No free air under the diaphragm. IMPRESSION: No acute cardiopulmonary pathology Reviewed, dictated and finalized at location A. R SPECIALIST
--- NOTE | ~2024-11-28 | CT_ITS ---
CT brain wo con Ordering provider: Joann Mcnulty PA-C History: 39 years Female with . syncope . Comparison: None. Technique: CT of the head without contrast. Radiation reduction technique utilized. The dose-length product was 605.33 mGy-cm. A views of the FINDINGS: BRAIN PARENCHYMA AND CSF SPACES: No midline shift, mass effect or hemorrhage. The brain parenchyma a nd CSF spaces are otherwise normal. VISUALIZED PARANASAL SINUSES: Well aerated. MASTOIDS: Well aerated. BONES: The bones appear intact. SOFT TISSUES: Visualized nasopharynx is normal. Superficial soft tissues are normal. IMPRESSION: No acute intracranial findings. Reviewed, dictated and finalized at location A. RY MACHINE MECHANIC
[2024-11-28 14:39] VITALS: BP 122/82; PULSE 60; RESP 16; TEMP 36.7; O2SAT 98
--- NOTE | 2024-11-28 17:27 | ED_ITS ---
HPI - Syncope General Chief Complaint: Syncope Stated Complaint: HIGH BP, SYNCOPAL EPISODE LAST NIGHT Time Seen by Provider: 11/28/24 17:27 Focused HPI: This is a 39 year old female that presents to the ER for a syncopal episode. Reports last night she discomfort in her chest and lightheadedness. Reports she was getting ready to go to bed and woke up in the hallway on the ground. She has never passed out before. Also reports she has broken blood vessels in her left eye. GENERAL: Well-appearing, well-nourished, and in no acute distress. HEAD: Normocephalic, atraumatic. Left eye conjunctival injection CHEST: Clear to auscultation. ?No respiratory distress. HEART: Regular rate and rhythm.? NEURO: ?Alert and oriented x3. Patient screened in triage and initial orders placed.? ?Additional care and disposition to be based upon?diagnostic testing and treatment. Related Data Home Medications ?Medication ?Instructions ?Recorded ?Confirmed ?Last Taken ?Type escitalopram oxalate 20 mg tablet 20 mg PO DAILY 10/15/20 11/06/20 11/05/20 12:00 History (Lexapro) vit no.95-ferrous 1 tablet PO DAILY 10/15/20 11/06/20 11/04/20 21:00 History fumarate 28 mg-folic acid 800 mcg tablet () Allergies Allergy/AdvReac Type Severity Reaction Status Date / Time morphine AdvReac Itching Verified 11/06/20 08:45 Review of Systems 2 Review of Systems: CONSTITUTIONAL: Denies fever EYES: Denies visual changes CARDIOVASCULAR: Denies current chest pain, palpitations, or edema. RESPIRATORY: Denies dyspnea. GASTROINTESTINAL: Denies vomiting MUSCULOSKELETAL: Denies back pain, joint pain, or myalgia. NEUROLOGIC: Denies numbness, or weakness. All systems reviewed & are unremarkable except as noted in HPI and below PMFSH Past Medical History Medical History (Updated 11/28/24 @ 22:28 by Joann Mcnulty PA-C) Gestational diabetes Surgical History Surgical History (Updated 11/06/20 @ 08:33 by Alejandro Palacio MD) History of Family History Family History Father Hypertension Son Septo-optic dysplasia Social History Social History (Updated 11/06/20 @ 08:27 by Vick Wong MD) Years smoked: 3 Smoking status: Former smoker Tobacco type: cigarettes Second hand tobacco smoke exposure: No Substance use: never Gender identity (if verbalized by the patient): Female Spiritual care concerns: No Exam 2 Narrative: GENERAL: Well-appearing, well-nourished, and in no acute distress. HEAD: Normocephalic, atraumatic. EYES: PERRLA and EOMI. ENT: Nares clear, no rhinorrhea or epistaxis. Mucous membranes moist. Oropharynx without tonsillar hypertrophy exudate or other lesions. Bilateral TMs pearly patel non-bulging NECK: Supple. No adenopathy or masses. No JVD CHEST: Clear to auscultation. No respiratory distress. No wheezes rales or rhonchi HEART: Regular rate and rhythm. No murmur heard. Normal peripheral pulses. EXTREMITIES: Normal range of motion. No edema. SKIN: Warm, dry, no rash. NEURO: No focal deficits. Alert and oriented x3. PSYCH: Normal mood and affect Course Course Emergency Course: patient updated on workup and agrees with plan of care Vital Signs Vital signs: Vital Signs Temperature 98.0 F 11/28/24 14:39 Pulse Rate 60 11/28/24 14:39 Respiratory Rate 16 11/28/24 14:39 Blood Pressure 122/82 11/28/24 14:39 Pulse Oximetry 98 11/28/24 14:39 Oxygen Delivery Room Air 11/28/24 14:39 Temperature 98.3 F 11/28/24 22:00 Pulse Rate 58 L 11/28/24 22:00 Respiratory Rate 15 11/28/24 22:00 Blood Pressure 117/96 H 11/28/24 22:00 Pulse Oximetry 100 11/28/24 22:00 Oxygen Delivery Room Air 11/28/24 22:00 MDM - Syncope MDM Narrative Medical decision making narrative: Patient presents the emergency department after a syncopal episode last night. Her vitals are stable. Cbc metabolic panel without concerning findings. EKG without concerning changes in baseline troponin is negative. D-dimer isn't elevated. Chest x-ray is normal. CT brain is normal. Syrian syncope risk score makes her low risk. Patient updated on her workup and agrees with plan of care. Instructed to have close follow-up with her PCP. She was given warnings to return to the ER Differential Diagnosis Differential diagnosis: Likely syncope due to orthostatic hypotension, vasovagal syncope, pulmonary embolism and dehydration Lab Data Attestation: I reviewed the patient's lab results. 11/28/24 18:53 11/28/24 18:53 Labs: Lab Results 11/28/24 Range/Units 18:53 WBC 4.9 (4.5-10.0) K/mm3 RBC 4.51 (4.2-5.4) M/mm3 Hgb 14.0 D (12.0-15.0) g/dL Hct 41.3 (37.0-47.0) % MCV 91.6 (80-100) fl MCH 31.0 (26-34) pg MCHC 33.9 (32-36) g/dl RDW 12.3 (11.5-14.5) % Plt Count 310 D (150-375) k/mm3 MPV 9.0 (7.4-10.4) fl Immature Gran % (Auto) 0.2 (0-0.5) % Neut % (Auto) 55.1 (45.5-73.1) % Lymph % (Auto) 34.8 (18.3-44.2) % [place] % (Auto) 7.0 (2.6-8.5) % Eos % (Auto) 2.5 (0-4.4) % Baso % (Auto) 0.4 (0.2-1.2) % Lymph # (Auto) 1.69 (0.9-3.2) K/mm3 [place] # (Auto) 0.3 (0.1-0.6) K/mm3 Eos # (Auto) 0.1 (0-0.3) K/mm3 Baso # (Auto) 0.0 (0.0-0.1) K/mm3 Abs Immat Gran (auto) 0.01 (0.00-0.031) K/mm3 Absolute Neuts (auto) 2.7 (1.3-6.7) K/mm3 Absolute Nucleated RBC 0.000 (0.0-0.012) K/mm3 Nucleated RBC % 0.0 (0.0-0.2) % PT 13.2 (11.1-14.7) Seconds INR 1.0 APTT 29.5 (22.3-36.8) Seconds D-Dimer 0.37 (<0.48) ug/mL Sodium 138 (137-145) mmol/L Potassium 4.5 (3.4-5.0) mmol/L Chloride 105 (98-107) mmol/L Carbon Dioxide 27 (22-30) mmol/L Anion Gap 6 (4-12) mmol/L BUN 20 H D (7-17) mg/dL Creatinine 0.72 (0.7-1.0) mg/dL Estim Creat Clear Calc 76 ml/min Estimated GFR > 60 (59 - ) Glucose 102 (65-110) mg/dL Calcium 9.3 (8.4-10.2) mg/dL Total Bilirubin 0.7 (0.2-1.3) mg/dL AST 20 (14-36) U/L ALT 17 (6-35) U/L Alkaline Phosphatase 47 (38-126) U/L Troponin I < 0.012 (0.000-0.034) ng/mL Total Protein 7.0 (6.3-8.2) g/dL Albumin 4.3 (3.5-5.1) g/dL Imaging Data Radiologist's impression: ITS Impressions Head CT 11/28/24 18:43 IMPRESSION: No acute intracranial findings. Chest X-Ray 11/28/24 18:47 IMPRESSION: No acute cardiopulmonary pathology ECG Data EKG #1: ECG completion date: 11/28/24 EKG Interpretation: bradycardia, sinus rhythm, no ST changes and normal QT Critical Care Time Critical Care Time Critical Care Time: No Discharge Plan Discharge Clinical Impression: Syncope Qualifiers: Syncope type: unspecified Qualified Code(s): R55 - Syncope and collapse Patient Disposition: Home, Self-Care Condition: Stable Instructions: Syncope (ED) Additional Instructions: Return to the emergency department if you experience fever, chest pain, shortness of breath, abdominal pain with nausea and vomiting, weakness, numbness, or any other symptoms that are concerning to you. Your blood work and imaging tonight is re-assuring Rest. Remain well hydrated Follow up with your primary care doctor for further evaluation. Dr. Bentley is our accounting manager controller primary doctor if needed Patient Language: Lao Prescriptions: No Action escitalopram oxalate [Lexapro] 20 mg Tablet 20 mg PO DAILY PNV cmb#95-ferrous fumarate-FA [] 28 mg iron- 800 mcg Tablet 1 tablet PO DAILY hydrocodone-acetaminophen 5-325 mg tablet 1 tablet PO Q4H PRN (Reason: pain) Qty: 20 0RF Follow-up/Referrals: Jordin Bentley MD [Physician] - PHYSICIAN,ASSISTANT GOLF COACH [Non-Staff] -
--- NOTE | 2024-11-28 17:29 | ECG_ITS ---
Test Date: 2024-11-28 21:57:20 Measurements Intervals [place] Rate: 56 P: 73 W[place]: 151 QRS: -56 QRSD: 97 T: 43 QT: 412 QTc: 399 Interpretive Statements SINUS BRADYCARDIA POSSIBLE LEFT ATRIAL ENLARGEMENT [-0.1mV P-WAVE IN V1/V2] INCOMPLETE RIGHT BUNDLE BRANCH BLOCK [90+ ms QRS DURATION, TERMINAL R IN V1/V2, 40+ ms S IN I/aVL/V4/V5/V6] LEFT ANTERIOR FASCICULAR BLOCK [QRS AXIS <= -45, QR IN I, RS IN II] ABNORMAL ECG Electronically Signed On 11-29-2024 08:28:53 DRYWALL WORKER by Chi Tse M.D.
[2024-11-28 19:02] LABS: Basophils Percent Auto 0.4 % (0.2-1.2); Eosinophils Absolute Auto 0.1 K/mm3 (0-0.3); Eosinophils Percent Auto 2.5 % (0-4.4); Hematocrit 41.3 % (37.0-47.0); Immature Granulocyte Absolute 0.01 K/mm3 (0.00-0.031); Immature Granulocyte Percent A 0.2 % (0-0.5); Lymphocytes Absolute Auto 1.69 K/mm3 (0.9-3.2); Lymphocytes Percent Auto 34.8 % (18.3-44.2); Mean Corpuscular HGB Conc 33.9 g/dl (32-36); Mean Corpuscular Volume 91.6 fl (80-100); Monocytes Absolute Auto 0.3 K/mm3 (0.1-0.6); Neutrophils Absolute Auto 2.7 K/mm3 (1.3-6.7); Neutrophils Percent Auto 55.1 % (45.5-73.1); Platelet Count Result 310 k/mm3 (150-375); Red Blood Count 4.51 M/mm3 (4.2-5.4); Red Cell Distribution Width 12.3 % (11.5-14.5); White Blood Count 4.9 K/mm3 (4.5-10.0)
[2024-11-28 19:12] LABS: Alanine Aminotransferase 17 U/L (6-35); Albumin Level 4.3 g/dL (3.5-5.1); Alkaline Phosphatase 47 U/L (38-126); Anion Gap 6 mmol/L (4-12); Aspartate Amino Transferase 20 U/L (14-36); Bilirubin,Total 0.7 mg/dL (0.2-1.3); Blood Urea Nitrogen 20 mg/dL (7-17); Calcium 9.3 mg/dL (8.4-10.2); Carbon Dioxide 27 mmol/L (22-30); Chloride 105 mmol/L (98-107); Estimated CRCL calculation 76 ml/min; Estimated Glomerular Filt Rate > 60; Glucose 102 mg/dL (65-110); Potassium 4.5 mmol/L (3.4-5.0); Sodium 138 mmol/L (137-145)
[2024-11-28 19:13] LABS: Prothrombin Time 13.2 Seconds (11.1-14.7)
[2024-11-28 19:15] LABS: Partial Thromboplastin Time 29.5 Seconds (22.3-36.8)
[2024-11-28 19:18] LABS: D Dimer 0.37 ug/mL (<0.48)
[2024-11-28 19:24] LABS: Troponin I < 0.012 ng/mL (0.000-0.034)
[2024-11-28 20:44] VITALS: BP 121/83; PULSE 51; RESP 18; O2SAT 100
[2024-11-28 22:00] VITALS: BP 117/96; PULSE 58; RESP 15; TEMP 36.8; O2SAT 100
== END 2024-11-28 22:43 | disposition home or self-care (01) ==
PROVIDERS: Emergency Provider Physician Assistant
DX: R55 Syncope and collapse (principal); Z87.891 Personal history of nicotine dependence
CPT/HCPCS: 36415; 70450; 71046; 80053; 84484; 85025; 85380; 85610; 85730; 93005; 99284